=== PATIENT | female | born 1935 | race Caucasian/White ===

== ENCOUNTER 2017-02-11 04:06 | Observation (INO) ==
--- NOTE | 2017-02-11 04:46 | EKG Report ---
Stationary ECG Study [facility] ER Test Date: 02/11/2017 4:44:57 AM Pat Name: WILMAR SORIA Department: Room: Gender: F Hhas: : 1935 Requested by: Kassie Zimmerman Order Number: [id number] Nahomy MD: REKHA FERGUSON Intervals [place] Rate: 77 P: 65 UT: 165 QRS: -16 QRSD: 104 T: 60 QT: 452 QTc: 484 Interpretive Statements SINUS RHYTHM PROLONGED QT INTERVAL Electronically Signed On 02-14-17 17:31:43 CDT by REKHA FERGUSON [email or web address]
[2017-02-11 05:06] LABS: Basophils # 0.1 10*3/uL (0.0-0.2); Basophils % 0.5 % (0.0-0.8); Eosinophils # 0.1 10*3/uL (0.0-0.87); Hematocrit 37.8 VOL% (35.7-47.0); Hemoglobin 12.8 GM/DL (12.0-16.0); Immature Granulocytes % 0.4 %; Immature Granulocytes Absolute 0.04 #; Lymphocytes # 2.2 10*3/uL (1.4-4.0); Lymphocytes % 21.8 % (21.3-54.2); Mean Corpuscular HGB Conc 33.9 GM/DL (32-36); Mean Corpuscular Hemoglobin 29 PG (27-34); Mean Corpuscular Volume 86.5 FL (87-102); Mean Platelet Volume 11.4 FL (9.6-12.0); Monocytes # 0.6 10*3/uL (0.11-0.8); Monocytes % 6.3 % (1.7-12.7); Neutrophils # 7.1 10*3/uL (1.4-7.4); Platelet Count 214 T/CUMM (130-400); Red Blood Count 4.37 MC/CUMM (3.8-5.5); Red Cell Distribution Width 12.8 % (9.3-17.3); White Blood Count 10.2 T/CUMM (4-12)
[2017-02-11 05:20] LABS: Amorphous Crystals,Urine Occasional /HPF (Few); Apearance,Urine Slightly Hazy (Clear); Bacteria,Urine Occasional /HPF (Few); Bilirubin,Urine Negative (Negative); Blood, Urine Small mg/dL (Negative); Glucose,Urine (UA) Negative (Negative); Ketones,Urine Negative (Negative); Mucus,Urine Occasional /LPF (Occasional); Nitrite,Urine Negative (Negative); Protein,Urine 30 MG/DL; RBC,Urine 8 /HPF (0-4); Squamous Epithelial Cell,Urine Occasional /HPF (0-10); Urine Color Yellow (Yellow); Urine Specific Gravity 1.006 (1.001-1.035); Urine Urobilinogen < 2.0 EU/DL (0.2-1.0); WBC,Urine 1 /HPF (0-6)
[2017-02-11 05:30] LABS: Alanine Aminotransferase 16 U/L (13-56); Albumin 3.3 G/DL (3.4-5.0); Alkaline Phosphatase 126 U/L (45-117); Aspartate Amino Transferase 10 U/L (0-37); Blood Urea Nitrogen 27 MG/DL (7-18); Calcium 9.2 MG/DL (8.5-10.1); Glucose 209 MG/DL (74-106); Potassium 3.7 MMOL/L (3.5-5.1); Sodium 136 MMOL/L (136-145); Total Protein 7.5 G/DL (6.4-8.3); Troponin I Only < 0.015 NG/ML (0.00-0.045)
[2017-02-11] MEDS ORDERED: SODIUM CHLORIDE 0.9% 1,000 ML IV STA (05:43)
--- NOTE | 2017-02-11 05:54 | Emergency Department Note ---
IElizabeth Kasabria, am scribing for, and in the presence of, Kassie Zimmerman MD 04:29. Elsie Beatty Leanne, MD, personally performed the services described in this documentation, ascribed by Alec Johnson in my presence, and it is both accurate and complete 541 . Arrival - Arrival Chief Complaint: Altered Mental Status Stated Complaint: AMS ED Nursing Triage Note: patient to ED via EMS with c/o AMS with a last known well time yesterday and progressively getting worse. patient has a PMH of HTN, seizure, and hypothyroid. patient unable to give full history. patient oriented to self and place but not time/date. patient family on the way. Mode of Arrival: Stretcher Limitations: No Limitations Source: Patient, Family (daughter ) Time Seen by Provider: 02/11/17 04:13 - History of Present Illness HPI Narrative: This is a 82 y/o white female presenting to the ED with c/o weakness that is progressively worsening. Pt's last known well time was yesterday. Daughter states she lives with the pt and for the past two night she has gotten up earlier in the morning with diaphoresis. The bed was wet from perspiration according to the daughter. Early this morning the pt used her walker to use the bathroom. When she got to the bathroom, her daughter heard her crying out for help. Pt was disoriented and did not know where she was or what her daughter name was. Since pt is oriented and states she feels "weird" and weak. Pt denies fever, chills, nausea, vomiting, and diarrhea. Her PMHx is consistent with HTN, seizure, hypothyroidism, and diabetes. Her PCP is Dr. Kraus. Consistency: constant Severity: moderate Allergies/Adverse Reactions: Allergies Allergy/AdvReac Type Severity Reaction Status Date / Time Sulfa (Sulfonamide Allergy Vomiting Verified 02/11/17 04:13 Antibiotics) Home Medications: Home Medications Medication Instructions Recorded Confirmed Type Brimonidine 0.15% Oph Soln 1 drops BOTH EYES BID 08/06/15 02/11/17 History [Alphagan P 0.15% Oph Soln] Carvedilol [Coreg] 6.25 mg PO BID 08/06/15 02/11/17 History Levothyroxine Tab [Synthroid Tab] 150 mcg PO DAILY@0700 08/06/15 02/11/17 History Losartan Potassium 50 mg PO DAILY 08/06/15 02/11/17 History Omeprazole 20 mg PO DAILY 08/06/15 02/11/17 History Pravastatin [Pravachol] 20 mg PO DAILY 08/06/15 02/11/17 History hydroCHLOROthiazide 25 mg PO DAILY 08/06/15 02/11/17 History [Hydrochlorothiazide] levETIRAcetam [Keppra] 500 mg PO BID 30 Days 08/12/15 02/11/17 Rx Aspirin [Aspirin EC] 1 tablet PO DAILY 02/11/17 02/11/17 History Gabapentin Cap/Tab [Neurontin 1 capsule PO TID 02/11/17 02/11/17 History Cap/Tab] Insulin NPH Human Isophane See Protocol SUBCUT DIRECTED 02/11/17 02/11/17 History [NovoLIN N] Magnesium Chloride [Slow Mag] 1 tablet PO DAILY 02/11/17 02/11/17 History Potassium Chloride 1 capsule PO DIRECTED 02/11/17 02/11/17 History Review of System - Review of System 12 point system: reviewed and no additional remarkable complaints except as stated - Review of System Constitutional: Present: diaphoresis, weakness. Absent: chills, fever Eyes: Absent: vision change Head/Ears/Nose/Throat: Absent: nasal drainage Respiratory: Absent: cough, wheezing Cardiovascular: Absent: chest pain Gastrointestinal: Absent: abdominal pain, nausea, vomiting, diarrhea Genitourinary female: Absent: dysuria Musculoskeletal: Absent: arm pain, back pain, leg pain, neck pain Skin: Absent: rash Neurological: Present: confusion. Absent: headache, weakness, numbness, abnormal gait, vertigo Psychiatric: Absent: anxiety Endocrine: Absent: fatigue Hematological/Lymphatic: Absent: easy bleeding Allergic/Immunologic: Absent: facial swelling Medical,Surgical,& Family Hx - Medical History Cardio: History of: Hypertension, [place] Neurology: History of: Seizures HEENT: History of: Glaucoma Endocrine: History of: Diabetes Mellitus (NIDDM), Thyroid Disorder Rheumatology: History of;: Gout Respiratory: History of: Asthma Genitourinary: History of: Recurring Urinary Tract Infections Gastrointestinal: History of: GERD, Hemorrhoids, GI Problems (diarrhea) Musculoskeletal: History of: Musculoskeletal Problems (arthritis) Other: No history of: Cancer - Surgical History Cardiac Surgeries: Patient Denies: Cardiac Catheterization Neurologic Surgeries: Patient denies: Neurologic Surgery Abdominal Surgeries: Surgical HX of: Cholecystectomy - Family History Family History: Reports;: Family Cancer (father- colon), Family Diabetes (mom, son), Family Heart Disease (dad), Family Hypertension (dad) Denies;: Family Stroke - Social History Smoking Status: Unknown if ever smoked Frequency of Alcohol Use: Unknown Type of Drug Use: Unknown Exam Vital Signs: Vital Signs Temperature 97.6 F 02/11/17 05:39 Pulse Rate 84 02/11/17 04:06 Respiratory Rate 20 02/11/17 05:08 Blood Pressure 179/130 02/11/17 04:06 O2 Sat by Pulse Oximetry 98 02/11/17 04:06 - General General appearance: alert, in no apparent distress, other (poor effort; generalized weakness. ) - Head Head exam: Present: atraumatic, normocephalic, normal inspection - Eye Eye exam: Present: normal appearance, PERRL, EOMI - ENT ENT exam: Present: normal exam, normal oropharynx, mucous membranes moist, TM's normal bilaterally, normal external ear exam - Neck Neck exam: Present: normal inspection, full ROM, trachea midline. Absent: tenderness - Chest Chest inspection: Present: normal inspection, symmetric chest wall rise. Absent : tenderness - Respiratory Respiratory exam: Present: normal lung sounds bilaterally - Cardiovascular Cardiovascular exam: Present: regular rate, normal rhythm, normal heart sounds - Abdominal Exam Abdominal exam: Present: soft, normal bowel sounds. Absent: distention, tenderness - Extremities Exam Extremities exam: Present: normal inspection, full ROM, normal capillary refill. Absent: tenderness, pedal edema, calf tenderness - Back Exam Back exam: Present: normal inspection, full ROM. Absent: tenderness - Neurological Exam Neurological exam: Present: alert, oriented X3, CN II-XII intact, normal gait, reflexes normal - Psychiatric Psychiatric exam: Present: normal affect, normal mood - Skin Skin exam: Present: warm, dry, intact, normal color. Absent: diaphoresis Course Course Narrative: labs show dehydration. will need second set of enzymes and monitoring. admit to hospitalist. Results - Labs CBC & BMP: 02/11/17 04:42 02/11/17 04:42 Lab Results: I have reviewed the patients labs - EKG EKG results: interpreted by ERMD, sinus rhythm EKG shows: sinus rhythm - Diagnostic Findings Procedure: Chest x-ray: image reviewed by me (no acute process), CT: report reviewed by me (head - diffuse atrophy and chronic/remote ischemic changes without evidence of superimposed acute infarct, hemorrhage, or mass-effect at this time. ) Disposition Clinical Impression: Altered mental status, Acute kidney injury Case discussed with: patient Additional Instructions: admit to hospitalist for observation
--- NOTE | 2017-02-11 06:00 | CT Report ---
CT head/brain wo con Indication: Altered mental status. Comparison: CT head 08/06/2015. Technique: CT of the brain was performed without administration of intravenous contrast. The CT examination was performed using one or more of the following dose reduction techniques: Automatic exposure control, adjustment of the mA and kV according to patient size, use of acute or iterative reconstruction techniques. Findings: There is no evidence of acute intracranial mass, hemorrhage, or infarction. Generalized cerebral atrophy is present. Small lacunar infarction within the anterior aspect of the right basal ganglia is present. Areas of decreased attenuation within the periventricular white matter and cerebral white matter are present which could be compatible with microvascular ischemia. The basal cisterns are patent. No significant abnormality is demonstrated to involve the posterior fossa or cerebellum. Orbits and globes demonstrate no evidence of significant pathology. The paranasal sinuses are clear. No significant abnormality is demonstrated to involve the mastoid air cells. The calvarium and overlying soft tissues demonstrate no evidence of acute pathology. Impression: 1. No CT evidence of acute intracranial pathology. 02/11/2017 5:56 AM PROCEDURE INTERPRETED AT [facility] DEPARTMENT OF RADIOLOGY Final Report Signed by: Dr. Mitchel Kimble
--- NOTE | 2017-02-11 06:02 | XRay Report ---
XR chest 1V portable Indication: Altered mental status Comparison: Chest x-ray 08/06/2015 Technique: Portable AP chest was performed. Findings: The heart size appears within normal limits. Calcification of the mitral valve annulus is present and could reflect evidence of prior rheumatic fever. The mediastinal contour and hilar structures demonstrate no significant abnormalities. Lungs are clear. Bones and soft tissues demonstrate no evidence of acute pathology. Gallbladder is surgically absent. Impression: 1. No evidence of acute pathology. 02/11/2017 5:58 AM PROCEDURE INTERPRETED AT [facility] DEPARTMENT OF RADIOLOGY Final Report Signed by: Dr. Mitchel Kimble
[2017-02-11] MEDS ORDERED: ONDANSETRON 4 MG/2 ML VIAL IV PRN (06:16)
[2017-02-11] MEDS ORDERED: DEXTROSE 50% 25 GM/50 ML VIAL IV PRN (06:16)
[2017-02-11] MEDS ORDERED: ACETAMINOPHEN 325 MG TABLET PO PRN (06:16)
[2017-02-11] MEDS ORDERED: GLUCAGON 1 MG VIAL IM PRN (06:16)
--- NOTE | 2017-02-11 06:28 | Hospitalist History & Physical ---
Assessment and Plan (1) Acute confusional state Status: Acute Current Visit: Yes (2) Mental status change Status: Acute Current Visit: No (3) Acute kidney injury Status: Acute Assessment and plan: I suspect the patient is having some dementia going on. I will consult speech therapy for formal Mini-Mental status exam. Patient did not know the year did not know the president. We will provide gentle hydration through the night. Repeat labs in the morning. Patient should be eligible for discharge tomorrow. Continue home meds as appropriate hold diabetic medicines for now and monitor her Accu-Cheks. Patient's daughter reports that she wakes up in a cold sweat. This could be hypoglycemic episodes. Current Visit: Yes History of Present Illness Chief complaint: Confusion History of present illness: Ms. Oquendo is a 82 year old female with past medical history significant for diabetes hypertension neuropathy who was in normal state of health until tonight. Around 230 to 3:00 patient got up to go the restroom. She got really confused and really did not know where she was at. She wakes up in a cold sweat. She has been really weak. Her daughter reports she did not recognize her which is unusual for the patient. Family got concerned and called EMS EMS brought her up to our hospital for further evaluation. I was consulted for admission to the ER Home Medications Medication Instructions Recorded Confirmed Type Brimonidine 0.15% Oph Soln 1 drops BOTH EYES BID 08/06/15 02/11/17 History [Alphagan P 0.15% Oph Soln] Carvedilol [Coreg] 6.25 mg PO BID 08/06/15 02/11/17 History Levothyroxine Tab [Synthroid Tab] 150 mcg PO DAILY@0700 08/06/15 02/11/17 History Losartan Potassium 50 mg PO DAILY 08/06/15 02/11/17 History Omeprazole 20 mg PO DAILY 08/06/15 02/11/17 History Pravastatin [Pravachol] 20 mg PO DAILY 08/06/15 02/11/17 History hydroCHLOROthiazide 25 mg PO DAILY 08/06/15 02/11/17 History [Hydrochlorothiazide] levETIRAcetam [Keppra] 500 mg PO BID 30 Days 08/12/15 02/11/17 Rx Aspirin [Aspirin EC] 1 tablet PO DAILY 02/11/17 02/11/17 History Gabapentin Cap/Tab [Neurontin 1 capsule PO TID 02/11/17 02/11/17 History Cap/Tab] Insulin NPH Human Isophane See Protocol SUBCUT DIRECTED 02/11/17 02/11/17 History [NovoLIN N] Magnesium Chloride [Slow Mag] 1 tablet PO DAILY 02/11/17 02/11/17 History Potassium Chloride 1 capsule PO DIRECTED 02/11/17 02/11/17 History Allergies Allergy/AdvReac Type Severity Reaction Status Date / Time Sulfa (Sulfonamide Allergy Vomiting Verified 02/11/17 04:13 Antibiotics) Medical,Surgical,& Family Hx - Medical History Cardio: History of: Hypertension, [place] Neurology: History of: Seizures HEENT: History of: Glaucoma Endocrine: History of: Diabetes Mellitus (NIDDM), Thyroid Disorder Rheumatology: History of;: Gout Respiratory: History of: Asthma Genitourinary: History of: Recurring Urinary Tract Infections Gastrointestinal: History of: GERD, Hemorrhoids, GI Problems (diarrhea) Musculoskeletal: History of: Musculoskeletal Problems (arthritis) Other: No history of: Cancer - Surgical History Cardiac Surgeries: Patient Denies: Cardiac Catheterization Neurologic Surgeries: Patient denies: Neurologic Surgery Abdominal Surgeries: Surgical HX of: Cholecystectomy - Family History Family History: Reports;: Family Cancer (father- colon), Family Diabetes (mom, son), Family Heart Disease (dad), Family Hypertension (dad) Denies;: Family Stroke - Social History Smoking Status: Unknown if ever smoked Frequency of Alcohol Use: Unknown Type of Drug Use: Unknown 12 point system: reviewed and no additional remarkable complaints except as stated Exam - Constitutional Vitals: Period Temp Pulse Resp BP Sys/Fan Pulse Ox Last 24 Hr 95.7 F-97.6 F 84-84 16-20 179-179/130-130 98 - General General appearance: alert, in no apparent distress, other (poor effort; generalized weakness. ) - Head Head exam: Present: atraumatic, normocephalic, normal inspection - Eye Eye exam: Present: normal appearance, PERRL, EOMI - ENT ENT exam: Present: normal exam, normal oropharynx, mucous membranes moist, TM's normal bilaterally, normal external ear exam - Neck Neck exam: Present: normal inspection, full ROM, trachea midline. . - Chest Chest inspection: Present: normal inspection, symmetric chest wall rise. - Respiratory Respiratory exam: Present: normal lung sounds bilaterally - Cardiovascular Cardiovascular exam: Present: regular rate, normal rhythm, normal heart sounds - Abdominal Exam Abdominal exam: Present: soft, normal bowel sounds. - Extremities Exam Extremities exam: Present: normal inspection, full ROM, normal capillary refill. Absent: tenderness, pedal edema, calf tenderness - Back Exam Back exam: Present: normal inspection, full ROM. Absent: tenderness - Neurological Exam Neurological exam: Present: alert, oriented X3, CN II-XII intact, normal gait, reflexes normal - Psychiatric Psychiatric exam: Present: normal affect, normal mood - Skin Skin exam: Present: warm, dry, intact, normal color. Results - Labs CBC & BMP: 02/11/17 04:42 02/11/17 04:42
[2017-02-11] MEDS: INSULIN REGULAR 100 UNIT/ML SUBCUT SCH ×4 (08:06→21:45)
[2017-02-11] MEDS ORDERED: hydroCHLOROthiazide 25 MG TABLET PO SCH (09:00)
[2017-02-11] MEDS: PANTOPRAZOLE 40 MG TABLET PO SCH (10:03)
[2017-02-11] MEDS: MAGNESIUM CHLORIDE 64 MG TABLET PO SCH (10:03)
[2017-02-11] MEDS: PRAVASTATIN 20 MG TABLET PO SCH (10:03)
[2017-02-11] MEDS: ASPIRIN EC 81 MG TABLET PO SCH (10:04)
[2017-02-11] MEDS: GABAPENTIN 300 MG CAPSULE PO SCH ×3 (10:04→21:45)
[2017-02-11] MEDS: LOSARTAN 50 MG TABLET PO SCH (10:04)
[2017-02-11] MEDS: CARVEDILOL 3.125 MG TABLET PO SCH ×2 (10:05→21:45)
[2017-02-11] MEDS: LEVOTHYROXINE 150 MCG TABLET PO SCH (10:05)
[2017-02-11] MEDS: levETIRAcetam 500 MG TABLET PO SCH ×2 (10:05→21:45)
[2017-02-11] MEDS: ENOXAPARIN 30 MG/0.3 ML SYRINGE SUBCUT SCH (10:08)
[2017-02-11] MEDS: SODIUM CHLORIDE 0.9% 1,000 ML IV SCH ×3 (10:13→21:45)
[2017-02-11] MEDS: POTASSIUM CHLORIDE 10 MEQ TABLET PO SCH (10:15)
--- NOTE | 2017-02-11 17:19 | Event Note ---
82-year-old female admitted earlier this morning with acute renal failure and altered mental status/encephalopathy. She has improved with IV fluid hydration. Her hydrochlorothiazide has been discontinued. Patient was seen and examined with her granddaughter at the bedside. She denies any complaints. She will continue to receive IV fluids today and tonight with anticipated discharge home in a.m. physical exam: Alert awake and oriented 3 no acute distress. Constitutional System: No distress. No tremulousness. Head: Normocephalic, atraumatic. Ears, Nose and Throat System: No pain or tenderness. No epistaxis or discharge Eyes System: Pupils equal, round, and reactive. Extraocular muscles intact. Neck: Supple, without adenopathy, No jugular venous distention. No thyromegaly, neck mass, or prior surgery apparent. Respiratory System: Chest clear to auscultation. Cardiovascular System: Heart with regular rate and rhythm. No murmur. GI System: Abdomen soft, nontender. Normo active bowel sounds present. Musculoskeletal System: limbs with no pedal edema. Full distal pulses. Neurological System: No discernable sensory deficit. No aphasia Psychiatric System: Conversation is rational Labs reviewed Assessment and plan: acute renal failure Continue IV fluid hydration hold nephrotoxic medications repeat labs in a.m.
[2017-02-11] MEDS: BRIMONIDINE 0.15% OPH SOLN 1 DROP/DROPS BOTTLE BOTH EYES SCH ×2 (17:29→21:46)
[2017-02-12] MEDS: LEVOTHYROXINE 150 MCG TABLET PO SCH (05:59)
[2017-02-12] MEDS: ENOXAPARIN 30 MG/0.3 ML SYRINGE SUBCUT SCH (05:59)
[2017-02-12 07:02] LABS: Basophils % 0.5 % (0.0-0.8); Eosinophils # 0.2 10*3/uL (0.0-0.87); Eosinophils % 3.8 % (0.00-10.9); Hematocrit 29.7 VOL% (35.7-47.0); Immature Granulocytes % 0.3 %; Immature Granulocytes Absolute 0.02 #; Lymphocytes % 46.5 % (21.3-54.2); Mean Corpuscular HGB Conc 34.3 GM/DL (32-36); Mean Corpuscular Hemoglobin 29 PG (27-34); Mean Corpuscular Volume 85.6 FL (87-102); Mean Platelet Volume 11.9 FL (9.6-12.0); Monocytes # 0.5 10*3/uL (0.11-0.8); Monocytes % 7.9 % (1.7-12.7); Neutrophils # 2.6 10*3/uL (1.4-7.4); Platelet Count 176 T/CUMM (130-400); Red Cell Distribution Width 13.2 % (9.3-17.3)
[2017-02-12 07:19] LABS: Hemoglobin 10.2 GM/DL (12.0-16.0); Red Blood Count 3.47 MC/CUMM (3.8-5.5); White Blood Count 6.3 T/CUMM (4-12)
[2017-02-12] MEDS: SODIUM CHLORIDE 0.9% 1,000 ML IV SCH (07:24)
[2017-02-12 07:38] LABS: Calcium 8.8 MG/DL (8.5-10.1); Osmolality,Calculated 288.3 MOS/KG (273-304)
[2017-02-12] MEDS: INSULIN REGULAR 100 UNIT/ML SUBCUT SCH (08:59)
[2017-02-12] MEDS: ASPIRIN EC 81 MG TABLET PO SCH (09:00)
[2017-02-12] MEDS: levETIRAcetam 500 MG TABLET PO SCH (09:00)
[2017-02-12] MEDS: POTASSIUM CHLORIDE 10 MEQ TABLET PO SCH (09:01)
[2017-02-12] MEDS: PANTOPRAZOLE 40 MG TABLET PO SCH (09:01)
[2017-02-12] MEDS: MAGNESIUM CHLORIDE 64 MG TABLET PO SCH (09:01)
[2017-02-12] MEDS: CARVEDILOL 3.125 MG TABLET PO SCH (09:01)
[2017-02-12] MEDS: PRAVASTATIN 20 MG TABLET PO SCH (09:02)
[2017-02-12] MEDS: GABAPENTIN 300 MG CAPSULE PO SCH (09:02)
[2017-02-12] MEDS: LOSARTAN 50 MG TABLET PO SCH (09:02)
[2017-02-12] MEDS: BRIMONIDINE 0.15% OPH SOLN 1 DROP/DROPS BOTTLE BOTH EYES SCH (09:03)
--- NOTE | 2017-02-12 09:58 | Discharge Summary ---
Hospital Course - Hospital Course Hospital Course: 82-year-old female admitted to the hospital with acute renal failure with a creatinine of 1.8. She was found to be dehydrated likely related to her hydrochlorothiazide. This was discontinued. The patient was hydrated with IV fluids. She presented to the emergency department with generalized weakness and altered mental status which improved with IV fluid hydration and correction of her renal function. This is a metabolic encephalopathy related to acute kidney injury that has now resolved. The patient is alert awake and oriented 3. She is in no acute distress. She was seen and examined this morning in the presence of her daughter at the bedside. She plans to follow-up with her primary care physician Dr. Kraus. She is back to baseline and has reached maximal benefit from this inpatient hospitalization. She is discharged home in stable condition with a new prescription for Cozaar and instructions to discontinue hydrochlorothiazide. The patient's home medications were reviewed and reconciled. The patient had no evidence of infection or TIA or stroke. She is a full code. - Time spent with patient Time with patient DS: Less than 30 minutes Diagnosis - Discharge Diagnosis (1) HTN (hypertension) Status: Chronic (2) DM2 (diabetes mellitus, type 2) Status: Chronic (3) Altered mental status Status: Resolved (4) Acute kidney injury Status: Resolved (5) Acute confusional state Status: Resolved Discharge Plan - Discharge Data Disposition: Disch To Home/Self Care Condition at Discharge: Stable Discharge Diet: advance to your usual diet Activity: resume usual activities as tolerated Hygiene: no restrictions Weight Bearing at Discharge: full weight bearing Contact your physician if you experience:: fever over 101, Shortness of breath - Discharge Medications Continue Levothyroxine Tab [Synthroid Tab] 150 mcg PO DAILY@0700 Omeprazole 20 mg PO DAILY Carvedilol [Coreg] 6.25 mg PO BID Brimonidine 0.15% Oph Soln [Alphagan P 0.15% Oph Soln] 1 drops BOTH EYES BID Pravastatin [Pravachol] 20 mg PO DAILY levETIRAcetam [Keppra] 500 mg PO BID 30 Days Aspirin [Aspirin EC] 1 tablet PO DAILY Magnesium Chloride [Slow Mag] 1 tablet PO DAILY Losartan Potassium 50 mg PO DAILY #30 tablet Gabapentin Cap/Tab [Neurontin Cap/Tab] 1 capsule PO TID Potassium Chloride 10 meq PO DAILY Insulin NPH Human Isophane [NovoLIN N] See Protocol SUBCUT DIRECTED Discontinued hydroCHLOROthiazide [Hydrochlorothiazide] 25 mg PO DAILY - Follow Up or Referral Follow Up: Víctor Kraus DO [Primary Care Provider] - - Forms/Instructions Additional Discharge Instructions: Stay hydrated and drink plenty of water. Exam - Constitutional Vitals: Period Temp Pulse Resp BP Sys/Fan Pulse Ox Last 24 Hr 98 F-99.1 F 78-95 18-20 132-170/54-74 92-97 Discharge Results Labs on day of discharge: Labs from last 24 hours 02/12/17 02/12/17 02/12/17 07:57 06:29 06:29 WBC 6.3 D RBC 3.47 L D Hgb 10.2 L D Hct 29.7 L MCV 85.6 L MCH 29 MCHC 34.3 RDW 13.2 Plt Count 176 MPV 11.9 Neut % (Auto) 41.0 Lymph % (Auto) 46.5 [place] % (Auto) 7.9 Eos % (Auto) 3.8 Baso % (Auto) 0.5 Neut # (Auto) 2.6 Lymph # (Auto) 3.0 [place] # (Auto) 0.5 Eos # (Auto) 0.2 Baso # (Auto) 0.0 Immature Gran % 0.3 Nucleated RBC % 0.0 Immature Gran # 0.02 Nucleated RBCs # 0.00 Sodium 141 Potassium 4.0 Chloride 109 H Carbon Dioxide 24 Anion Gap 12.0 BUN 18 Creatinine 1.30 H GFR Calculation 39 BUN/Creatinine Ratio 13.00 Glucose 208 H POC Glucose 204 H Hemoglobin A1c Calculated Osmolality 288.3 Calcium 8.8 TSH 3rd Generation 02/12/17 02/12/17 02/11/17 06:29 06:29 20:30 WBC RBC Hgb Hct MCV MCH MCHC RDW Plt Count MPV Neut % (Auto) Lymph % (Auto) [place] % (Auto) Eos % (Auto) Baso % (Auto) Neut # (Auto) Lymph # (Auto) [place] # (Auto) Eos # (Auto) Baso # (Auto) Immature Gran % Nucleated RBC % Immature Gran # Nucleated RBCs # Sodium Potassium Chloride Carbon Dioxide Anion Gap BUN Creatinine GFR Calculation BUN/Creatinine Ratio Glucose POC Glucose 240 H Hemoglobin A1c 6.7 H Calculated Osmolality Calcium TSH 3rd Generation 0.014 L 02/11/17 02/11/17 16:30 11:34 WBC RBC Hgb Hct MCV MCH MCHC RDW Plt Count MPV Neut % (Auto) Lymph % (Auto) [place] % (Auto) Eos % (Auto) Baso % (Auto) Neut # (Auto) Lymph # (Auto) [place] # (Auto) Eos # (Auto) Baso # (Auto) Immature Gran % Nucleated RBC % Immature Gran # Nucleated RBCs # Sodium Potassium Chloride Carbon Dioxide Anion Gap BUN Creatinine GFR Calculation BUN/Creatinine Ratio Glucose POC Glucose 208 H 240 H Hemoglobin A1c Calculated Osmolality Calcium TSH 3rd Generation DS: Provider Date of admission: 02/11/17 06:16 Primary care physician: íVctor Kraus DO Attending physician on admission: Rudolph Jiménez MD Consults: 02/11/17 07:32 Consult to Physical Therapy [CONS] Routine Reason for Physical Therapy: Evaluate and Treat 02/11/17 07:47 Consult to Pharmacy [CONS] Routine Reason for Pharmacy Consult: Adjust Meds Renal Funct Discharging clinician: Rudolph Jiménez MD Expected date of discharge: 02/12/17
[2017-02-12 10:16] VITALS: BP 180/70
== END 2017-02-12 12:00 | disposition home or self-care (01) ==
LOC: EDUNIT# → EDBD → N.EDINP 04:06 → N.ED 04:06 → N.EDINP 07:19 → N.4E 07:33
PROVIDERS: ADMIT Family Medicine; ATTEND Family Medicine

== ENCOUNTER 2017-09-01 08:13 | Inpatient (IN) ==
[2017-09-01] MEDS ORDERED: SODIUM CHLORIDE 0.9% 500 ML IV STA (08:37)
[2017-09-01 09:05] LABS: Basophils # 0.1 10*3/uL (0.0-0.2); Basophils % 0.8 % (0.0-0.8); Eosinophils # 0.3 10*3/uL (0.0-0.87); Eosinophils % 3.5 % (0.00-10.9); Hemoglobin 12.5 GM/DL (12.0-16.0); Immature Granulocytes % 0.2 %; Immature Granulocytes Absolute 0.02 #; Lymphocytes % 40.8 % (21.3-54.2); Mean Corpuscular HGB Conc 35.7 GM/DL (32-36); Mean Corpuscular Hemoglobin 30 PG (27-34); Mean Corpuscular Volume 83.5 FL (87-102); Mean Platelet Volume 11.5 FL (9.6-12.0); Monocytes # 0.5 10*3/uL (0.11-0.8); Monocytes % 5.4 % (1.7-12.7); Neutrophils # 4.8 10*3/uL (1.4-7.4); Neutrophils % 49.3 % (38.7-73.9); Platelet Count 207 T/CUMM (130-400); Red Blood Count 4.19 MC/CUMM (3.8-5.5); Red Cell Distribution Width 13.7 % (9.3-17.3); White Blood Count 9.8 T/CUMM (4-12)
[2017-09-01 09:12] LABS: Apearance,Urine Slightly Hazy (Clear); Bacteria,Urine Many /HPF (Few); Bilirubin,Urine Negative (Negative); Blood, Urine Small mg/dL (Negative); Glucose,Urine (UA) Negative (Negative); Ketones,Urine Negative (Negative); Mucus,Urine Occasional /LPF (Occasional); Nitrite,Urine Negative (Negative); Protein,Urine 100 MG/DL; RBC,Urine 7 /HPF (0-4); Squamous Epithelial Cell,Urine Occasional /HPF (0-10); Urine Color Yellow (Yellow); Urine Specific Gravity 1.006 (1.001-1.035); Urine Urobilinogen < 2.0 EU/DL (0.2-1.0)
[2017-09-01 09:15] LABS: Partial Thromboplastin Time 26.1 SECS (0-40)
[2017-09-01 09:18] LABS: Barbiturates Screen,Urine Negative (Negative); Benzodiazepines Screen,Urine Negative (Negative); Cannabinoid Screen,Urine Negative (Negative); Opiate Screen,Urine Negative (Negative); Phencyclidine Screen,Urine Negative (Negative)
[2017-09-01 09:38] LABS: Alanine Aminotransferase 16 U/L (13-56); Alkaline Phosphatase 74 U/L (45-117); Aspartate Amino Transferase 9 U/L (0-37); Bilirubin,Total < 0.39 MG/DL (0.2-1.0); Blood Urea Nitrogen 16 MG/DL (7-18); Calcium 8.4 MG/DL (8.5-10.1); Glucose 133 MG/DL (74-106); Osmolality,Calculated 283.3 MOS/KG (273-304); Potassium 3.9 MMOL/L (3.5-5.1); Sodium 141 MMOL/L (136-145); Total Protein 6.4 G/DL (6.4-8.3)
[2017-09-01 10:06] LABS: Ammonia 63 UMOL/L (11-32)
[2017-09-01] MEDS ORDERED: LORazepam 2 MG/1 ML VIAL IV ONE (10:46)
[2017-09-01] MEDS ORDERED: CARVEDILOL 6.25 MG TABLET PO SCH (11:30)
[2017-09-01] MEDS ORDERED: DEXTROSE 50% 25 GM/50 ML VIAL IV PRN (12:45)
[2017-09-01] MEDS ORDERED: GLUCAGON 1 MG VIAL IM PRN (12:45)
[2017-09-01] MEDS ORDERED: METHEN/SOD PHOS/METH BLUE/HYOS TABLET PO SCH (13:00)
[2017-09-01] MEDS: LOSARTAN 50 MG TABLET PO SCH (14:45)
[2017-09-01] MEDS: ASPIRIN EC 81 MG TABLET PO SCH (14:46)
[2017-09-01] MEDS: PRAVASTATIN 20 MG TABLET PO SCH (14:46)
[2017-09-01] MEDS: PHENAZOPYRIDINE 95 MG TABLET PO SCH (17:12)
[2017-09-01] MEDS: CARVEDILOL 6.25 MG TABLET PO SCH (17:13)
[2017-09-01] MEDS: BRIMONIDINE 0.15% OPH SOLN 1 DROP/DROPS BOTTLE BOTH EYES SCH (21:34)
[2017-09-02] MEDS: LEVOTHYROXINE 150 MCG TABLET PO SCH (06:38)
[2017-09-02 07:06] LABS: Basophils # 0.1 10*3/uL (0.0-0.2); Basophils % 0.4 % (0.0-0.8); Eosinophils % 0.2 % (0.00-10.9); Hematocrit 34.1 VOL% (35.7-47.0); Hemoglobin 12.3 GM/DL (12.0-16.0); Immature Granulocytes % 0.5 %; Immature Granulocytes Absolute 0.08 #; Lymphocytes # 3.1 10*3/uL (1.4-4.0); Lymphocytes % 20.8 % (21.3-54.2); Mean Corpuscular HGB Conc 36.1 GM/DL (32-36); Mean Corpuscular Hemoglobin 30 PG (27-34); Mean Corpuscular Volume 82.8 FL (87-102); Monocytes # 0.9 10*3/uL (0.11-0.8); Monocytes % 6.2 % (1.7-12.7); Neutrophils # 10.7 10*3/uL (1.4-7.4); Neutrophils % 71.9 % (38.7-73.9); Platelet Count 221 T/CUMM (130-400); Red Blood Count 4.12 MC/CUMM (3.8-5.5); Red Cell Distribution Width 13.8 % (9.3-17.3); White Blood Count 14.9 T/CUMM (4-12)
[2017-09-02 07:31] LABS: Calcium 8.7 MG/DL (8.5-10.1); Osmolality,Calculated 286.4 MOS/KG (273-304); Potassium 3.7 MMOL/L (3.5-5.1)
[2017-09-02] MEDS: PHENAZOPYRIDINE 95 MG TABLET PO SCH ×3 (09:00→17:24)
[2017-09-02] MEDS: LOSARTAN 50 MG TABLET PO SCH (09:01)
[2017-09-02] MEDS: ASPIRIN EC 81 MG TABLET PO SCH (09:01)
[2017-09-02] MEDS: CARVEDILOL 6.25 MG TABLET PO SCH ×2 (09:01→17:24)
[2017-09-02] MEDS: PANTOPRAZOLE 40 MG TABLET PO SCH (09:02)
[2017-09-02] MEDS: PRAVASTATIN 20 MG TABLET PO SCH (09:02)
[2017-09-02] MEDS: BRIMONIDINE 0.15% OPH SOLN 1 DROP/DROPS BOTTLE BOTH EYES SCH ×2 (09:03→21:25)
[2017-09-02] MEDS: ZINC OXIDE PASTE 113 GM TUBE TOP SCH (21:25)
[2017-09-03] MEDS: LEVOTHYROXINE 150 MCG TABLET PO SCH (06:32)
[2017-09-03] MEDS: PHENAZOPYRIDINE 95 MG TABLET PO SCH ×2 (08:51→12:32)
[2017-09-03] MEDS: CARVEDILOL 6.25 MG TABLET PO SCH (08:51)
[2017-09-03] MEDS: PANTOPRAZOLE 40 MG TABLET PO SCH (08:52)
[2017-09-03] MEDS: LOSARTAN 50 MG TABLET PO SCH (08:52)
[2017-09-03] MEDS: BRIMONIDINE 0.15% OPH SOLN 1 DROP/DROPS BOTTLE BOTH EYES SCH (08:52)
[2017-09-03] MEDS: ZINC OXIDE PASTE 113 GM TUBE TOP SCH (08:52)
[2017-09-03] MEDS: PRAVASTATIN 20 MG TABLET PO SCH (08:52)
[2017-09-03] MEDS: ASPIRIN EC 81 MG TABLET PO SCH (08:52)
[2017-09-03 11:51] VITALS: BP 137/76
== END 2017-09-03 15:45 | disposition home health service (06) | DRG 83 ==
LOC: EDUNIT# → EDBD → N.ED 08:13 → SUATTDRO 10:01 → N.EDINP 10:01 → N.2E 11:10
PROVIDERS: ADMIT Family Medicine; ATTEND Internal Medicine Infectious Disease